=== PATIENT | female | born 1960 | race Caucasian/White ===

== ENCOUNTER → 2020-10-16 | Outpatient (CLI) | payer BC ==
[~2020-10-16] MED LIST: GLUCOPHAGE500 MG PO; LOSARTAN-HCTZ1 EAC2 PO; MYRBETRIQ50 MG PO; RESTASIS 0.05%1 EACH EYEBOTH; ROBAXIN500 MG PO; VOLTAREN GEL TD
== END ==
LOC: EXRD 13:41
DX: M19.90 Unspecified osteoarthritis, unspecified site (principal); M50.323 Other cervical disc degeneration at C6-C7 level
CPT/HCPCS: 72040

== ENCOUNTER → 2021-01-06 | Outpatient (CLI) | payer BC | LOC: ECHO 12-18 12:00 → HEART 5 12-31 10:30 → ECHO 01-01 09:00 → NM 09:00 → ECHO 09:13 | DX: R06.02 Shortness of breath (principal); E11.65 Type 2 diabetes mellitus with hyperglycemia; I20.8 Other forms of angina pectoris; I27.20 Pulmonary hypertension, unspecified; I07.1 Rheumatic tricuspid insufficiency | CPT/HCPCS: ECHO; 78452; 93017; 93306; A9502; J2785 ==